=== PATIENT | male | born 1970 | race Caucasian/White ===

== ENCOUNTER 2016-04-02 09:48 | Emergency (ER) | payer OTHER ==
[~2016-04-02] VITALS: Ht 167.6 cm; Wt 95.8 kg
[~2016-04-02 09:48] MED LIST: HYDR50CA2 PO; QUET1TAB91 PO
[2016-04-02 10:06] VITALS: Ht 167.6 cm; Wt 95.8 kg
[2016-04-02] MEDS ORDERED: ACETAMINOPHEN 325 MG TAB PO STA (10:59)
[2016-04-02] MEDS ORDERED: VNTHFA/IN INH (11:02)
[2016-04-02] MEDS ORDERED: LXP10 PO (11:02)
--- NOTE | 2016-04-02 11:23 | DIAGNOSTIC IMAGING REPORT ---
CHEST 2 VIEWS ROUTINE CLINICAL HISTORY: Cough, congestion, fever. COMPARISON STUDY: No previous studies for comparison. FINDINGS: The heart is enlarged. There is prominence the right mediastinum, likely secondary to aortic tortuosity/ectasia. There is no focal pulmonary consolidation. There is no failure. There are no pleural effusions.[ IMPRESSION: 1. Cardiomegaly 2. 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 No evidence of focal pulmonary consolidation Electronically signed by: Mckay Aguirre M.D. 04/02/2016 11:21 AM Dictated Date/Time: 04/02/2016 11:20 AM
[2016-04-02] MEDS ORDERED: DOXY100C2 PO (11:32)
[2016-04-02] MEDS ORDERED: PRVHFAIN INH (11:32)
[2016-04-02 11:39] VITALS: BP 114/72; PULSE 82; TEMP 37; O2SAT 96
--- NOTE | 2016-04-02 15:27 | EMERGENCY ROOM VISIT NOTE ---
History Report prepared by Rosa: Ferdinand Castaneda Under the Supervision of: Dr. Clive Lowe M.D. First contact with patient: 10:54 Chief Complaint: CONGESTION Stated Complaint: CONGESTION,SORETHROAT,CAN'T BREATHE,COLD Nursing Triage Summary: sore throat, cough, congestion for a week pt c/o cold sx for 1 week or more. productive yellow sputum cough, nasal congestion, chest congestion, hard to breathe," in nose, throat and ears" per pt pt took dimetap last night , nothing today History of Present Illness The patient is a 46 year old male who presents to the Emergency Room with complaints of persistent congestion beginning a week and a half prior to arrival. He currently rates his discomfort as an 8/10 in severity. The patient associates a productive cough with yellow sputum and a sorethroat with today's symptoms. He states he does not know if he has a fever. The patient notes he has not seen a doctor for his symptoms. He denies vomiting. 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 A total of 10 systems reviewed and were otherwise negative. Past Medical & Surgical Medical Problems: (1) Asthma (2) Otalgia, unspecified ear (3) Otitis media, unspecified Family History No pertinent family history Social History Smoking Status: Former Smoker Alcohol Use: occasionally Marital Status: single Housing Status: unknown Occupation Status: disabled Current/Historical Medications Scheduled Albuterol (Ventolin Hfa), 2 PUFFS INH Q4H Doxycycline Hyclate (Vibramycin), 100 MG PO BID Escitalopram Oxalate (Escitalopram Oxalate), 10 MG PO DAILY Scheduled PRN Albuterol Hfa (Ventolin Hfa), 2 PUFFS INH Q6H PRN for SOB/Wheezing Hydroxyzine Pamoate (Vistaril), 50 MG PO Q6H PRN for Anxiety/Agitation Allergies Coded Allergies: No Known Allergies (Unverified , 04/02/16) Physical Exam Vital Signs Date Time Temp Pulse Resp B/P Pulse Ox O2 Delivery O2 Flow Rate FiO2 04/02/16 11:39 37.0 82 24 114/72 96 04/02/16 10:51 96 Room Air 04/02/16 10:06 96 Room Air 04/02/16 10:06 37.0 90 18 153/96 97 Room Air Physical Exam Constitutional: Vital signs reviewed. Eyes: Pupils are equal round reactive to light. Conjunctiva are noninjected. ENT: Pharynx is clear without erythema or exudate. Mucous membranes are moist. Neck supple without meningeal signs. Respiratory: Clear to auscultation bilaterally. Breath sounds are equal bilaterally. Cardiovascular: Regular rate and rhythm. No rubs or gallops. GI: Soft, nondistended and nontender. Bowel sounds are present. Musculoskeletal: No peripheral edema. Integumentary: No cyanosis. Neurological: The patient is awake and alert. No focal deficits. Psychiatric: Normal affect. Medical Decision & Procedures ER Provider Diagnostic Interpretation: X-ray results as stated below per interpretation by me and the radiologist: CHEST 2 VIEWS ROUTINE CLINICAL HISTORY: Cough, congestion, fever. COMPARISON STUDY: No previous studies for comparison. FINDINGS: The heart is enlarged. There is prominence the right mediastinum, likely secondary to aortic tortuosity/ectasia. There is no focal pulmonary consolidation. There is no failure. There are no pleural effusions.[ IMPRESSION: 1. Cardiomegaly 2. 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 No evidence of focal pulmonary consolidation Electronically signed by: Mckay Aguirre M.D. 04/02/2016 11:21 AM Medications Administered Medications (Trade) Dose Ordered Sig/Rufina Route Start Time Stop Time Status Last Admin Dose Admin Acetaminophen (Tylenol Tab) 650 mg NOW STAT PO 04/02/16 10:59 04/02/16 11:00 DC 04/02/16 10:59 650 MG ED Course 1056: The patient was evaluated in room B10. A complete history and physical exam was performed. 1059: Ordered Tylenol Tab 650 mg PO. 1131: Upon reevaluation, the patient appeared to have improvement of his symptoms. I discussed tonight's findings with him. He verbalized agreement of the treatment plan. The patient was discharged home. Medical Decision This is a 46-year-old male who presents with cold symptoms. Differential diagnosis includes bronchitis, sinusitis, pneumonia, URI. I did perform a limited focused review of portions of the patient's old chart on the electronic medical record. The patient has had no recent pertinent visits to this hospital. I did evaluate the patient as noted above. He is well appearing on examination. He does have a history of asthma but has no wheezing on exam. I did order and personally review the patient's chest x-ray as described above. There is no evidence of pneumonia. I did discuss the test results with the patient. I did recommend antibiotic treatment. He also requested a refill for his albuterol MDI. He was discharged with a prescription for doxycycline and an albuterol MDI. He was advised follow with his doctor. Impression Primary Impression: Bronchitis Additional Impression: Asthma Scribe Attestation The scribe's documentation has been prepared under my direct and personally reviewed by me in its entirety. I confirm that the note above accurately reflects all work, treatment, procedures, and medical decision making performed by me. Departure Information Dispostion Home / Self-Care Prescriptions Doxycycline Hyclate (VIBRAMYCIN) 100 Mg Cap 100 MG PO BID for 10 Days, #20 CAP Prov: Clive Lowe M.D. 04/02/16 Albuterol (Ventolin Hfa) 60 Puffs/5400 Mcg Aers 2 PUFFS INH Q4H, #1 INHALER Prov: Clive Lowe M.D. 04/02/16 Referrals Celia Newberry D.O. (PCP) Forms HOME CARE DOCUMENTATION FORM, IMPORTANT VISIT INFORMATION Patient Instructions ED Bronchitis Abx Tx, My [facility] Additional Instructions You have been examined and treated today on an emergency basis only. This is not a substitute for, or an effort to provide, complete comprehensive medical care. It is impossible to recognize and treat all injuries or illnesses in a single emergency department visit. It is therefore important that you follow up closely with your physician. Call as soon as possible for an appointment. Return for worsening symptoms or if you develop fever, vomiting, chest pain or any other concerning symptoms. Problem Qualifiers Additional Impression: Asthma Asthma severity: unspecified severity Asthma complication type: uncomplicated Qualified Codes: J45.909 - Unspecified asthma, uncomplicated
== END 2016-04-02 11:41 | disposition home or self-care (01) ==
LOC: C.EDB 09:50
DX: J20.9 Acute bronchitis, unspecified (principal); J45.909 Unspecified asthma, uncomplicated; Z87.891 Personal history of nicotine dependence

== ENCOUNTER 2016-10-31 09:22 | Emergency (ER) | payer OTHER ==
[~2016-10-31] VITALS: Ht 170.2 cm; Wt 99.2 kg
[~2016-10-31 09:22] MED LIST changes: +DOXY100C2 PO; +LXP10 PO; -QUET1TAB91 PO; +VNTHFA/IN INH
[2016-10-31 09:30] VITALS: TEMP 36.6; Ht 170.2 cm; Wt 99.2 kg
[2016-10-31] MEDS ORDERED: OMEP20CA9 PO (09:39)
--- NOTE | 2016-10-31 10:02 | EMERGENCY ROOM VISIT NOTE ---
History Report prepared by Syedibvaishali: Janet Spann Under the Supervision of: Dr. Gavino Ware M.D. First contact with patient: 09:46 Chief Complaint: NECK PAIN Stated Complaint: NECK PAIN History of Present Illness The patient is a 46 year old male who presents to the Emergency Room with complaints of persistent neck pain for the past 1 month. He rates his discomfort as a 7/10 in severity and notes the pain radiates into his shoulders. He denies any recent traumatic injury but admits "I might have been lifting something, I'm pretty sure that's what did it". He has been taking 3 Ibuprofen twice a day with moderate relief. His last dose of Ibuprofen was taken "yesterday sometime". Heat pads used intermittently have also provided moderate relief. The patient has a history of chronic back pain but has never undergone back surgery before. He believes he had back X-rays taken "a few years ago". He admits to occasional weakness in his legs stating "the pain radiates down to my legs", but he is still able to ambulate normally. The last time he saw his PCP was "last year sometime". He denies any recent fevers, chills, nausea, vomiting, diarrhea or urinary symptoms. He is a current smoker. He is not currently working, but states this is due to more than his history of back and neck pain. Source of History: patient Onset: 1 month [employer] Position: neck Symptom Intensity: 7/10 Timing: other (persistent) Modifying Factors (Relieving): ibuprofen Associated Symptoms: + back pain, + weakness (in the legs), No fevers, No chills, No nausea, No vomiting, No diarrhea, No urinary symptoms Review of Systems See HPI for pertinent positives and negatives. A total of ten systems were reviewed and were otherwise negative. Past Medical & Surgical Medical Problems: (1) Asthma (2) Otalgia, unspecified ear (3) Otitis media, unspecified Family History No pertinent family history Social History Smoking Status: Former Smoker Alcohol Use: occasionally Marital Status: single Housing Status: unknown Occupation Status: disabled Current/Historical Medications Scheduled Amoxicillin & Pot Clavulanate (Amoxicillin/Clavulanate P), 1 TAB PO BID Escitalopram Oxalate (Escitalopram Oxalate), 10 MG PO DAILY Omeprazole (Prilosec), 20 MG PO DAILY Scheduled PRN Albuterol Hfa (Ventolin Hfa), 2 PUFFS INH Q6H PRN for SOB/Wheezing Diazepam (Valium), 2 MG PO QID PRN for Muscle Spasms Ibuprofen Tab (Motrin), 800 MG PO Q8H PRN for Pain Allergies Coded Allergies: No Known Allergies (Unverified , 10/31/16) Physical Exam Vital Signs Date Time Temp Pulse Resp B/P (MAP) Pulse Ox O2 Delivery O2 Flow Rate FiO2 10/31/16 16:32 84 18 151/99 96 10/31/16 13:54 63 16 130/83 99 Room Air 10/31/16 11:27 78 16 111/81 10/31/16 09:30 36.6 87 16 142/94 96 Room Air Physical Exam GENERAL: Awake, alert, well-appearing, in no distress HENT: Normocephalic, atraumatic. Oropharynx unremarkable. EYES: Normal conjunctiva. Sclera non-icteric. NECK: ROM limited 2/2 pain. No JVD. Bilateral paraspinal tenderness to palpation with palpable muscle spasm, tightness extending bilaterally to trapezius muscles. RESPIRATORY: Clear to auscultation. CARDIAC: Regular rate, normal rhythm. Extremities warm and well perfused. Pulses equal. ABDOMEN: Soft, non-distended. No tenderness to palpation. No rebound or guarding. No masses. RECTAL: Deferred. MUSCULOSKELETAL: Chest examination reveals no tenderness. The back is symmetrical on inspection without obvious abnormality. There is no CVA tenderness to palpation. No joint edema. LOWER EXTREMITIES: Positive straight leg raise in BLE. 5/5 strength in lower extremities. Sensation is intact. Calves are equal size bilaterally and non- tender. No edema. No discoloration. NEURO: Normal sensorium. No sensory or motor deficits noted. CNII-XII and cerebellar intact intact. SKIN: No rash or jaundice noted. Medical Decision & Procedures ER Provider Diagnostic Interpretation: Radiology results as stated below per my review and radiologist interpretation: C-SPINE ROUTINE 4 OR 5 VIEWS CLINICAL HISTORY: neck pain COMPARISON STUDY: No previous studies for comparison. FINDINGS: The prevertebral soft tissues are normal. No fractures or subluxations are visualized. As a mild cervical scoliosis. There are mild to moderate multilevel degenerative changes. Note is made of poor dentition with dental caries and dental apical abscesses. IMPRESSION: 1. Multilevel degenerative change. No fractures or subluxations identified. No destructive lesions are visualized. 2. Poor dentition with dental caries and dental apical abscesses. Electronically signed by: Mckay Aguirre M.D. 10/31/2016 11:[address] SOFT TISSUE NECK WITH CT DOSE: 405.23 mGycm CLINICAL HISTORY: Neck pain. Possible abscess. TECHNIQUE: Helical images were acquired during intravenous administration of 93 cc of Optiray 320. A dose lowering technique was utilized adhering to the principles of ALARA. COMPARISON STUDY: None. FINDINGS: The visualized portions of the lung apices are unremarkable. No thyroid masses are visualized. No salivary gland masses are visualized. Jugular digastric lymph nodes are the upper limits of normal in size. There is no pathologic adenopathy by size criteria. No necrotic nodes are visualized. There are no fluid collections suspicious for abscess. There is no evidence of airway compromise. No mucosal space masses are visualized. There is poor dentition with multiple caries and multiple dental apical abscesses. IMPRESSION: 1. Poor dentition with multiple caries and multiple dental apical abscesses 2. No evidence of soft tissue abscess 3. No pathologic neck masses identified Electronically signed by: Mckay Aguirre M.D. 10/31/2016 2:23 PM Laboratory Results 10/31/16 12:35 Red Blood Count 4.72, Mean Corpuscular Volume 82.4, Mean Corpuscular Hemoglobin 27.3, Mean Corpuscular Hemoglobin Concent 33.2, Mean Platelet Volume 10.3, Neutrophils (%) (Auto) 59.6, Lymphocytes (%) (Auto) 27.9, Monocytes (%) (Auto) 8.6, Eosinophils (%) (Auto) 2.4, Basophils (%) (Auto) 0.6, Neutrophils # (Auto) 6.28, Lymphocytes # (Auto) 2.94, Monocytes # (Auto) 0.91, Eosinophils # (Auto) 0.25, Basophils # (Auto) 0.06 10/31/16 12:35 Test 10/31/16 12:35 White Blood Count 10.53 K/uL (4.8-10.8) Red Blood Count 4.72 M/uL (4.7-6.1) Hemoglobin 12.9 g/dL (14.0-18.0) Hematocrit 38.9 % (42-52) Mean Corpuscular Volume 82.4 fL (80-100) Mean Corpuscular Hemoglobin 27.3 pg (25-34) Mean Corpuscular Hemoglobin Concent 33.2 g/dl (32-36) Platelet Count 366 K/uL (130-400) Mean Platelet Volume 10.3 fL (7.4-10.4) Neutrophils (%) (Auto) 59.6 % Lymphocytes (%) (Auto) 27.9 % Monocytes (%) (Auto) 8.6 % Eosinophils (%) (Auto) 2.4 % Basophils (%) (Auto) 0.6 % Neutrophils # (Auto) 6.28 K/uL (1.4-6.5) Lymphocytes # (Auto) 2.94 K/uL (1.2-3.4) Monocytes # (Auto) 0.91 K/uL (0.11-0.59) Eosinophils # (Auto) 0.25 K/uL (0-0.5) Basophils # (Auto) 0.06 K/uL (0-0.2) RDW Standard Deviation 43.2 fL (36.4-46.3) RDW Coefficient of Variation 14.5 % (11.5-14.5) Immature Granulocyte % (Auto) 0.9 % Immature Granulocyte # (Auto) 0.09 K/uL (0.00-0.02) Anion Gap 7.0 mmol/L (3-11) Est Creatinine Clear Calc Drug Dose 109.0 ml/min Estimated GFR () 110.8 Estimated GFR (Non- 95.6 BUN/Creatinine Ratio 12.2 (10-20) Calcium Level 8.8 mg/dl (8.5-10.1) Laboratory results reviewed by me Medications Administered Medications (Trade) Dose Ordered Sig/Rufina Route Start Time Stop Time Status Last Admin Dose Admin Ibuprofen (Motrin Tab) 800 mg NOW STAT PO 10/31/16 10:06 10/31/16 10:10 DC 10/31/16 10:35 800 MG Diazepam (Valium Tab) 5 mg NOW ONCE PO 10/31/16 10:15 10/31/16 10:16 DC 10/31/16 10:36 5 MG Sodium Chloride 1,000 ml @ 999 mls/hr Q1H1M STAT IV 10/31/16 12:13 10/31/16 13:13 DC 10/31/16 12:43 999 MLS/HR Amoxicillin/ Clavulanate Potassium (Augmentin Tab) 875 mg NOW STAT PO 10/31/16 14:47 10/31/16 14:50 DC 10/31/16 15:21 875 MG ED Course 09: The patient was evaluated in room B5. A complete history and physical exam was performed. 1006: Ibuprofen 800 mg PO. 1015: Valium 5 mg PO. 1200: I reevaluated the patient. He is feeling better but still complains of some neck stiffness. His X-ray of the cervical spine noted multiple dental abscesses, so I will order a CT scan of the neck, and the patient is agreeable with this plan. 1213: NSS 1000 ml @ 999 mls/hr IV. 1447: Augmentin 875 mg PO. 1515: Nursing Case Management informed me they were able to get the appointment an appointment with a dentist next week. 1536: I reevaluated the patient. He is feeling much better. I discussed his results and discharge instructions and he verbalized complete understanding and agreement. Medical Decision I reviewed the patient's past medical history, medications, and the nursing notes as described above. The differential diagnoses considered include but are not limited to muscle strain/spasm/ torticollis, arthritis, disc bulge, disc herniation, radiculopathy and fracture. Patient is a 46 her old gentleman with past medical history of chronic back pain presents to the emergency department with 1 month of waxing and waning neck pain and tightness per history of present illness. Arrival of the patient is in no acute distress, afebrile with stable vital signs. On exam the patient has tenderness bilaterally in the paraspinal muscles with palpable muscle spasm/ tightness extending bilaterally to the trapezius muscle. Range of motion limited in the neck secondary to pain and tightness. Otherwise the patient has a positive straight leg raise bilaterally setting of his known sciatica. No step-offs or midline tenderness throughout the CT L-spine. Otherwise patient has 5 out of 5 strength and sensation intact 4 extremities. Patient denies any concerning symptoms such as urinary retention or bowel incontinence. Thus symptoms unlikely to be a fracture or cord compression. Most likely muscle spasm / torticollis as patient describes waxing and waning improvement with limited neck range of motion. Well check x-ray to evaluate for any gross abnormalities and/or arthritic changes. Otherwise will treat symptomatically with ibuprofen and Valium for muscle relaxation. Plain film of C-spine negative for fractures however demonstrated multiple periapical dental abscesses. In the setting concerned that patient's torticollis may be secondary to soft tissue infection related to dental infection. CT soft tissue neck was done which is negative for any soft tissue infection in the neck and ovary demonstrated multiple periapical dental abscesses. Case management assisting with arranging for dental follow-up which was scheduled for Saturday. In the interim I'll treat with Augmentin. Otherwise , patient will be treated with ibuprofen, heating pad, and Valium as needed for muscle spasm. Findings and plan for follow-up d/w patient. Patient agreeable and d/c'd per discharge instructions. [place] Drug Monitoring Program Search Results: no issues identified Medication Reconcilliation Current Medication List: was personally reviewed by me Blood Pressure Screening Patient's blood pressure: Elevated blood pressure Blood pressure disposition: Elevated BP felt to be situational Impression Primary Impression: Muscle spasm Additional Impressions: Torticollis, unspecified Dental abscess Scribe Attestation The scribe's documentation has been prepared under my direction and personally reviewed by me in its entirety. I confirm that the note above accurately reflects all work, treatment, procedures, and medical decision making performed by me. Departure Information Dispostion Home / Self-Care Prescriptions Amoxicillin & Pot Clavulanate (AMOXICILLIN/CLAVULANATE P) 1 Tab Tab 1 TAB PO BID for 10 Days, #20 TAB 875-125 tabs Prov: Gavino Ware M.D. 10/31/16 Ibuprofen Tab (MOTRIN) 800 Mg Tab 800 MG PO Q8H Y for Pain for 14 Days, #42 TAB Prov: Gavino Ware M.D. 10/31/16 Diazepam (VALIUM) 2 Mg Tab 2 MG PO QID Y for Muscle Spasms, #3 TAB Prov: Gavino Ware M.D. 10/31/16 Referrals Celia Newberry D.O. (PCP) Patient Instructions Dental Abscess, ED Spasm Neck No Injury, My [facility] [address], Torticollis Additional Instructions Please follow up with your dental referral on Saturday as scheduled and your primary care physician in the next 1-3 days for reevaluation and possible referral for physical therapy. Your found to have multiple dental infections with abscesses. Otherwise, your exam, lab results, CT scan did not show signs of an emergent condition at this time at this time. Ibuprofen for pain as needed as directed. Heating pad at 20 minute intervals throughout the day for additional muscle relaxation. Antibiotics as directed. Valium as needed for additional muscle relaxation. Return to the emergency department for worsening symptoms as described in the accompanying instructions. Problem Qualifiers
[2016-10-31] MEDS ORDERED: IBUPROFEN 800 MG TAB PO STA (10:06)
[2016-10-31] MEDS ORDERED: DIAZEPAM 5MG TAB PO ONE (10:15)
--- NOTE | 2016-10-31 11:11 | DIAGNOSTIC IMAGING REPORT ---
C-SPINE ROUTINE 4 OR 5 VIEWS CLINICAL HISTORY: neck pain COMPARISON STUDY: No previous studies for comparison. FINDINGS: The prevertebral soft tissues are normal. No fractures or subluxations are visualized. As a mild cervical scoliosis. There are mild to moderate multilevel degenerative changes. Note is made of poor dentition with dental caries and dental apical abscesses. IMPRESSION: 1. Multilevel degenerative change. No fractures or subluxations identified. No destructive lesions are visualized. 2. Poor dentition with dental caries and dental apical abscesses. Electronically signed by: Mckay Aguirre M.D. 10/31/2016 11:10 AM Dictated Date/Time: 10/31/2016 11:08 AM
[2016-10-31] MEDS ORDERED: SODIUM CHLORIDE 0.9% 1000ML 1,000 ML IV STA (12:13)
[2016-10-31 13:08] LABS: BASO % 0.6 %; BASO ABS # 0.06 K/uL (0-0.2); COMPLETE YES; EOS % 2.4 %; HEMATOCRIT 38.9 % (42-52); IG% 0.9 %; LYMPH % 27.9 %; LYMPH ABS # 2.94 K/uL (1.2-3.4); MEAN CELL VOLUME 82.4 fL (80-100); MEAN CORPUSCULAR HEMOGLOBIN 27.3 pg (25-34); MEAN CORPUSCULAR HGB CONC 33.2 g/dl (32-36); MEAN PLATELET VOLUME 10.3 fL (7.4-10.4); MONO % 8.6 %; NEUT % 59.6 %; PLATELET COUNT 366 K/uL (130-400); RED BLOOD COUNT 4.72 M/uL (4.7-6.1); WHITE BLOOD COUNT 10.53 K/uL (4.8-10.8)
[2016-10-31 13:27] LABS: BUN/CREATININE RATIO 12.2 (10-20); CALCIUM 8.8 mg/dl (8.5-10.1); CREATININE 0.95 mg/dl (0.60-1.40); POTASSIUM 3.9 mmol/L (3.5-5.1)
--- NOTE | 2016-10-31 14:24 | DIAGNOSTIC IMAGING REPORT ---
CT SOFT TISSUE NECK WITH CT DOSE: 405.23 mGycm CLINICAL HISTORY: Neck pain. Possible abscess. TECHNIQUE: Helical images were acquired during intravenous administration of 93 cc of Optiray 320. A dose lowering technique was utilized adhering to the principles of ALARA. COMPARISON STUDY: None. FINDINGS: The visualized portions of the lung apices are unremarkable. No thyroid masses are visualized. No salivary gland masses are visualized. Jugular digastric lymph nodes are the upper limits of normal in size. There is no pathologic adenopathy by size criteria. No necrotic nodes are visualized. There are no fluid collections suspicious for abscess. There is no evidence of airway compromise. No mucosal space masses are visualized. There is poor dentition with multiple caries and multiple dental apical abscesses. IMPRESSION: 1. Poor dentition with multiple caries and multiple dental apical abscesses 2. No evidence of soft tissue abscess 3. No pathologic neck masses identified Electronically signed by: Mckay Aguirre M.D. 10/31/2016 2:23 PM Dictated Date/Time: 10/31/2016 2:18 PM
[2016-10-31] MEDS ORDERED: AMOXICILLIN/CLAVULANATE TAB 875 MG TAB PO STA (14:47)
[2016-10-31] MEDS ORDERED: IBUP-1451 PO (16:06)
[2016-10-31] MEDS ORDERED: DIAZ2TAB PO (16:06)
[2016-10-31] MEDS ORDERED: AMOX1TAB42 PO (16:12)
[2016-10-31 16:32] VITALS: BP 151/99; PULSE 84; O2SAT 96
== END 2016-10-31 16:33 | disposition home or self-care (01) ==
LOC: C.EDB 09:23
DX: M62.838 Other muscle spasm (principal); M43.6 Torticollis; K04.7 Periapical abscess without sinus; J45.909 Unspecified asthma, uncomplicated; Z87.891 Personal history of nicotine dependence; Z79.899 Other long term (current) drug therapy